=== PATIENT | female | born 1935 | race Caucasian/White ===

== ENCOUNTER 2016-11-07 14:40 | Inpatient (IN) | payer MEDICARE ==
[~2016-11-07] VITALS: Ht 152.4 cm; Wt 100.8 kg
[2016-11-07] MEDS ORDERED: MORPHINE 4 MG/ML SYR ONE ×2 (17:42→20:36)
[2016-11-07] MEDS ORDERED: ORPHENADRINE 60 MG/2 ML AMP ONE (19:29)
[2016-11-07] MEDS ORDERED: ONDANSETRON 4 MG VIAL IV PUSH PRN (21:00)
[2016-11-07] MEDS ORDERED: ALPRAZOLAM 0.25 MG TAB PO PRN (21:00)
[2016-11-07] MEDS ORDERED: SODIUM CHLORIDE 0.9% 100 ML IV ONE (21:07)
[2016-11-07] MEDS ORDERED: CEFTRIAXONE 1 GM VIAL ONE (21:07)
[2016-11-07 22:05] VITALS: BP_SYST 148; RESP 22; TEMP 99
[2016-11-07 22:10] VITALS: Ht 152.4 cm; Wt 100.8 kg
[2016-11-08] MEDS ORDERED: SALINE FLUSH 5 ML FLUSH PRN (06:05)
[2016-11-08] MEDS ORDERED: SALINE FLUSH 10 ML FLUSH PRN (06:10)
[2016-11-08 07:30] VITALS: BP_SYST 153; RESP 20; TEMP 98.6
[2016-11-08] MEDS ORDERED: SALINE FLUSH 5 ML FLUSH SCH (09:00)
[2016-11-08] MEDS: SALINE FLUSH 10 ML FLUSH SCH ×2 (10:23→20:36)
[2016-11-08 11:05] VITALS: BP_SYST 139; TEMP 98.4
[2016-11-08] MEDS: DILTIAZEM CD 120 MG CAP PO SCH (11:17)
[2016-11-08] MEDS: Losartan 50 MG TAB PO SCH (11:17)
[2016-11-08 16:02] VITALS: BP_SYST 120; RESP 20; TEMP 98.6
[2016-11-08] MEDS: LACTULOSE SOLN 20GM/30ML UDC PO PRN (18:32)
[2016-11-08 20:18] VITALS: BP_SYST 158; RESP 18; TEMP 98.1
[2016-11-09] VITALS (7 sets, daily range): BP systolic 128–154; RESP 16–20; TEMP 97.3–98.3
[2016-11-09] MEDS ORDERED: *PINK BRACELET XX ONE (04:55)
[2016-11-09] MEDS: SODIUM CHLORIDE 0.9% FLUSH BAG 500 ML IV SCH (05:25)
[2016-11-09] MEDS ORDERED: SODIUM CHLORIDE 0.9% FLUSH BAG 500 ML IV SCH (06:00)
[2016-11-09] MEDS: LEVOTHYROXINE 0.1 MG TAB PO SCH (06:08)
[2016-11-09] MEDS: PANTOPRAZOLE 40 MG TAB PO SCH (06:08)
[2016-11-09] MEDS: [UNRECOGNIZED DRUG - OTHER] XX SCH ×2 (07:36→20:00)
[2016-11-09] MEDS: Losartan 50 MG TAB PO SCH (08:56)
[2016-11-09] MEDS: SALINE FLUSH 10 ML FLUSH SCH ×2 (08:56→20:00)
[2016-11-09] MEDS: DILTIAZEM CD 120 MG CAP PO SCH (08:56)
[2016-11-09] MEDS: FLUOXETINE 20 MG CAP PO SCH (08:56)
[2016-11-09] MEDS: TOLTERODINE LA 2 MG CAP PO SCH (08:56)
[2016-11-09] MEDS: DILAUDID 1 MG/ML AMP IV PRN ×2 (12:52→17:07)
[2016-11-10] MEDS: DILAUDID 1 MG/ML AMP IV PRN ×2 (01:11→08:32)
[2016-11-10 05:07] VITALS: BP_SYST 149; RESP 16; TEMP 97.4
[2016-11-10] MEDS: SODIUM CHLORIDE 0.9% FLUSH BAG 500 ML IV SCH (06:00)
[2016-11-10] MEDS: LEVOTHYROXINE 0.1 MG TAB PO SCH (06:37)
[2016-11-10] MEDS: PANTOPRAZOLE 40 MG TAB PO SCH (06:37)
[2016-11-10 07:24] VITALS: BP_SYST 136; RESP 18; TEMP 97.4
[2016-11-10] MEDS: [UNRECOGNIZED DRUG - OTHER] XX SCH ×2 (08:00→20:00)
[2016-11-10] MEDS: DILTIAZEM CD 120 MG CAP PO SCH (08:31)
[2016-11-10] MEDS: FLUOXETINE 20 MG CAP PO SCH (08:31)
[2016-11-10] MEDS: Losartan 50 MG TAB PO SCH (08:31)
[2016-11-10] MEDS: TOLTERODINE LA 2 MG CAP PO SCH (08:31)
[2016-11-10] MEDS: SALINE FLUSH 10 ML FLUSH SCH ×2 (08:31→20:37)
[2016-11-10] MEDS: LACTULOSE SOLN 20GM/30ML UDC PO PRN (09:38)
[2016-11-10 11:25] VITALS: BP_SYST 137; RESP 18; TEMP 97.7
[2016-11-10 15:48] VITALS: BP_SYST 139; RESP 18; TEMP 97.5
[2016-11-10 19:12] VITALS: BP_SYST 135; RESP 20; TEMP 97.6
[2016-11-10 22:39] VITALS: BP_SYST 156; RESP 20; TEMP 97.8
[2016-11-11] VITALS (9 sets, daily range): BP systolic 115–160; RESP 20–22; TEMP 97.2–98.6
[2016-11-11] MEDS: DILAUDID 1 MG/ML AMP IV PRN ×4 (01:04→21:35)
[2016-11-11] MEDS: SODIUM CHLORIDE 0.9% FLUSH BAG 500 ML IV SCH (05:48)
[2016-11-11] MEDS: LEVOTHYROXINE 0.1 MG TAB PO SCH (05:48)
[2016-11-11] MEDS: PANTOPRAZOLE 40 MG TAB PO SCH (05:48)
[2016-11-11] MEDS: [UNRECOGNIZED DRUG - OTHER] XX SCH ×2 (08:00→19:59)
[2016-11-11] MEDS: SALINE FLUSH 10 ML FLUSH SCH ×2 (09:11→19:59)
[2016-11-11] MEDS: Losartan 50 MG TAB PO SCH (09:11)
[2016-11-11] MEDS: TOLTERODINE LA 2 MG CAP PO SCH (09:11)
[2016-11-11] MEDS: DILTIAZEM CD 120 MG CAP PO SCH (09:12)
[2016-11-11] MEDS: FLUOXETINE 20 MG CAP PO SCH (09:12)
[2016-11-11] MEDS ORDERED: LACTULOSE SOLN 20GM/30ML UDC PO ONE (11:10)
[2016-11-11] MEDS ORDERED: LACTULOSE SOLN 20GM/30ML UDC PO PRN (11:10)
[2016-11-12 02:42] VITALS: BP_SYST 124; RESP 20; TEMP 97.7
[2016-11-12] MEDS: SODIUM CHLORIDE 0.9% FLUSH BAG 500 ML IV SCH (04:40)
[2016-11-12] MEDS: LEVOTHYROXINE 0.1 MG TAB PO SCH (06:31)
[2016-11-12] MEDS: PANTOPRAZOLE 40 MG TAB PO SCH (06:31)
[2016-11-12 07:50] VITALS: BP_SYST 124; RESP 18; TEMP 97.4
[2016-11-12] MEDS: [UNRECOGNIZED DRUG - OTHER] XX SCH ×2 (09:17→20:00)
[2016-11-12] MEDS: SALINE FLUSH 10 ML FLUSH SCH ×2 (09:18→21:06)
[2016-11-12] MEDS: FLUOXETINE 20 MG CAP PO SCH (09:18)
[2016-11-12] MEDS: DILTIAZEM CD 120 MG CAP PO SCH (09:18)
[2016-11-12] MEDS: Losartan 50 MG TAB PO SCH (09:18)
[2016-11-12] MEDS: TOLTERODINE LA 2 MG CAP PO SCH (09:18)
[2016-11-12] MEDS ORDERED: BISACODYL 10 MG SUPP RECTAL ONE (10:05)
[2016-11-12] MEDS ORDERED: LACTULOSE SOLN 20GM/30ML UDC PO PRN (10:05)
[2016-11-12] MEDS ORDERED: BISACODYL EC 5 MG TAB PO ONE (10:05)
[2016-11-12 11:57] VITALS: BP_SYST 134; RESP 18; TEMP 98.8
[2016-11-12 14:53] VITALS: BP_SYST 142; RESP 18; TEMP 98.6
[2016-11-12 19:22] VITALS: BP_SYST 141; RESP 16; TEMP 97.6
[2016-11-13] VITALS (9 sets, daily range): BP systolic 99–143; RESP 16–20; TEMP 97.4–98
[2016-11-13] MEDS: SODIUM CHLORIDE 0.9% FLUSH BAG 500 ML IV SCH (06:00)
[2016-11-13] MEDS: PANTOPRAZOLE 40 MG TAB PO SCH (06:02)
[2016-11-13] MEDS: LEVOTHYROXINE 0.1 MG TAB PO SCH (06:03)
[2016-11-13] MEDS: [UNRECOGNIZED DRUG - OTHER] XX SCH ×2 (08:00→19:19)
[2016-11-13] MEDS: Losartan 50 MG TAB PO SCH (09:00)
[2016-11-13] MEDS: TOLTERODINE LA 2 MG CAP PO SCH (09:00)
[2016-11-13] MEDS: FLUOXETINE 20 MG CAP PO SCH (09:01)
[2016-11-13] MEDS: SALINE FLUSH 10 ML FLUSH SCH ×2 (09:01→20:23)
[2016-11-13] MEDS: DILTIAZEM CD 120 MG CAP PO SCH (09:01)
[2016-11-14 03:40] VITALS: BP_SYST 153; RESP 18; TEMP 97.5
[2016-11-14] MEDS: SODIUM CHLORIDE 0.9% FLUSH BAG 500 ML IV SCH (06:00)
[2016-11-14] MEDS: PANTOPRAZOLE 40 MG TAB PO SCH (06:05)
[2016-11-14] MEDS: LEVOTHYROXINE 0.1 MG TAB PO SCH (06:05)
[2016-11-14 07:12] VITALS: BP_SYST 122; RESP 18; TEMP 97.2
[2016-11-14] MEDS: [UNRECOGNIZED DRUG - OTHER] XX SCH ×2 (07:30→13:50)
[2016-11-14] MEDS: Losartan 50 MG TAB PO SCH (08:09)
[2016-11-14] MEDS: TOLTERODINE LA 2 MG CAP PO SCH (08:09)
[2016-11-14] MEDS: SALINE FLUSH 10 ML FLUSH SCH (08:09)
[2016-11-14] MEDS: DILTIAZEM CD 120 MG CAP PO SCH (08:09)
[2016-11-14] MEDS: FLUOXETINE 20 MG CAP PO SCH (08:09)
[2016-11-14 11:12] VITALS: BP_SYST 122; RESP 18; TEMP 97.2
[2016-11-14 11:22] VITALS: BP_SYST 142; RESP 18; TEMP 97.1
[2016-11-14 12:25] VITALS: BP_SYST 142; RESP 18; TEMP 97.1
== END 2016-11-14 15:00 | DRG 543 ==
LOC: ENRESERVTM → ENRESERVDT → ER 14:40 → EMR 20:51 → 3NT 21:48 → OBSVTOIN 11-09 09:19 → ENPENDDIS 11-09 09:19
PROVIDERS: ADMIT Internal Medicine Nephrology; ATTEND Internal Medicine Nephrology
DX: M48.54XA Collapsed vertebra, not elsewhere classified, thoracic region, initial encounter for fracture (principal); N39.0 Urinary tract infection, site not specified; M48.56XA Collapsed vertebra, not elsewhere classified, lumbar region, initial encounter for fracture; E03.9 Hypothyroidism, unspecified; K21.9 Gastro-esophageal reflux disease without esophagitis; F41.9 Anxiety disorder, unspecified; B96.20 Unspecified Escherichia coli [E. coli] as the cause of diseases classified elsewhere
CPT/HCPCS: 36415; 72072; 72100; 80053; 81001; 85025; 87077; 87088; 87186; 96365; 96375; 96376